=== PATIENT | male | born 1940 | race Caucasian/White ===

== ENCOUNTER → 2021-11-22 00:50 | Outpatient (CLI) | payer MEDICARE, BC, SELFPAY ==
--- NOTE | 2021-11-22 11:00 | DI.NM_ITS ---
APPROVED REPORT Exam: Pharmacologic Patient Location: Out-Patient Room/Bed: Stress Nurse: Vanesa Kam RN Ordering Provider:CLARISA MAS, Contact Number: [phone] BMI: 21.76 Baseline Rhythm: Sinus Rhythm Comment: RBBB, flipped V2 Indications: Stable angina Medical History Medical History: Hypertension, hyperlipidemia, prediabetes, CVD Cardiac Medications: Metoprolol, amlodipine, isosorbide, atorvastatin, aspirin Allergies: NKA Cardiac Risk Factors: Hypertension, hyperlipidemia, prediabetes, CVD Previous Cardiac Procedures: DELMER (08-26, ) Pretest Chest Pain Characteristics: None Exercise History: Sedentary Physical Disabilities: None Lung Sounds: Clear to auscultation Heart Sounds: Regular Stress Test Details Test: Exercise stress converted to pharmacologic stress due to failure to obtain a diagnostic stress test. Reason for pharmacologic stress test: changed from exercise stress test due to inability to reach t arget heart rate. Nuclear Acquisition: Rest Tc-99m/Stress Tc-99m 1 day Rest Isotope: Tc-99m Sestamibi. Dose: 10.4 Date: 11/22/2021 Injection Time: 0845 Stress Isotope: Tc-99m Sestamibi. Dose: 31.0 Date: 11/22/2021 Injection Time: 1040 HR Resting HR Supine: 74 bpm Max Heart Rate (APMHR): 138.258328 bpm Resting HR Standin bpm Target HR (85% APMHR): 117.943861 bpm Max HR Achieved: 124 bpm % of APMHR: 89.86 Recovery HR: 84 bpm HR response to stress: Normal HR response to stress Comment: Metoprolol held for 48 hrs BP Resting BP Supine: 140/64 mmHg Resting BP Standin/58 mmHg Max BP: 168/66 mmHg Recovery BP: 140/70 mmHg BP response to stress: Normal blood pressure response to stress. ECG Resting ECG: Sinus Rhythm, RBBB Ectopy: None Comment: Flipped T waves lead V2 Stress ECG: Sinus Tachycardia, RBBB ST Change: No significant ST segment changes noted Arrhythmia: Frequent PACs, occasional PVCs Recovery ECG: Sinus Rhythm, RBBB Recovery ST Change: No significant ST segment changes noted Recovery Arrhythmia: Frequent PACs, frequent PVCs, couplets, brief episode of junctional rhythm at mi nute 3:50 in recovery Comment: Ectopy decreased towards end of recovery period Medications Administered Aminophyline (50 mg at 6 min recovery) Clinical Reason for Termination: Fatigue, Chest pain/Anginal equivalent Stress Symptoms: General Fatigue, Chest pain Exercise duration: 5 min59 sec Highest Stage Reached: Stage 2: 2.5 mph at 12% grade. Angina Score: Exercise-Limiting Rate Pressure Product: [id number] Stress ECG Conclusion 1. Resting electrocardiogram showed a right bundle branch block 2. Patient underwent exercise testing using a combination of low-level stress and regadenoson 3. Peak heart rate was 89% of predicted for age 4. Electrocardiographic portion of the test did not demonstrate any evidence of myocardial ischemia 5. See MPI report Stress Test Summary STAGE Time (mins) Speed (mph) Grade (%) HR BP SYMPTOMS METS Supine 74 140/64 Standing 66 138/58 SpO2 96% 1 3 1.7 10 100 138/56 SpO2 96% 4.6 2 6 2.5 12 111 4/10 CP sharp, SpO2 96% 7 1 min post Lexiscan injection 110 148/56 6/10 CP, SpO2 98% 3 min post Lexiscan injection 93 168/66 8/10 CP, SpO2 98% 6 min post Lexiscan injection 113 164/66 9/10 CP, SpO2 98% 9 min post Lexiscan injection 94 160/66 7/10 CP, SpO2 98% 12 min post Lexiscan injection 88 156/72 5/10 CP, SpO2 98% 15 min post Lexiscan injection 83 144/70 4/10 CP, SpO2 98% 17 84 140/70 4/10 CP, SpO2 98% 19 80 2/10 CP, SpO2 98% Exercise stress converted to pharmacologic stress due to failure to obtain a diagnostic stress test. Patient walked on treadmill at 1.3 mph and 0% grade during Regandenoson administration. Pt reported i ncrease in midsternal sharp 9/10 that radiated to BUE during recovery. Aminophylline administered at minute 6 of recovery. Chest pain decreased to level 2/10 by minute 19 of recovery and patient stated he felt well enough to continue with remaining MPI study. MPI Conclusion There is is ischemia of the inferoapical and septal mota EF 67% Septum and anteroapical segments are hypokinetic Radiologist Interpretation Radiologist agrees with Framing Mill Operator Helper's Interpretation. Radiologist Interpretation by: Elmo Rose MD Interpretation Date/Time: 11/22/2021 17:14:23
[2021-11-22] MEDS: Regadenoson 0.4 MG/5 ML SYR IVP (11:35)
== END ==
PROVIDERS: Visit Provider Family Medicine
DX: I20.8 Other forms of angina pectoris (principal)
CPT/HCPCS: 78452; 93016; 93018; 93017; J0280; J2785

== ENCOUNTER 2022-01-24 08:06 | Outpatient (CLI) | payer MEDICARE, BC, SELFPAY ==
--- NOTE | 2022-01-24 08:00 | RT.EKG_ITS ---
APPROVED REPORT Exam: Resting ECG Reason for Exam: angina Patient Location: O HR:61 bpm ECG Measurements Heart Rate 61 AXIS PA 168 P 76 QRSd 131 QRS 82 QT 411 T 36 QTc 414 Conclusion Sinus rhythm...normal P axis, V-rate 50- 99 Right bundle branch block...QRSd>120, terminal axis(90,270)
== END 2022-01-24 08:07 | disposition home or self-care (01) ==
LOC: DI.CARD 08:07
PROVIDERS: PCP Family Medicine; Visit Provider Internal Medicine Cardiovascular Disease
DX: I20.9 Angina pectoris, unspecified (principal); R94.31 Abnormal electrocardiogram [ECG] [EKG]; I45.19 Other right bundle-branch block
CPT/HCPCS: 93010

== ENCOUNTER → 2022-01-24 12:25 | Outpatient (BNVA) | payer MEDICARE, BC, SELFPAY | PROVIDERS: PCP Family Medicine; Visit Provider Internal Medicine Cardiovascular Disease | DX: I25.9 Chronic ischemic heart disease, unspecified (principal); I45.10 Unspecified right bundle-branch block; I12.9 Hypertensive chronic kidney disease with stage 1 through stage 4 chronic kidney disease, or unspecified chronic kidney disease; I25.2 Old myocardial infarction; I25.10 Atherosclerotic heart disease of native coronary artery without angina pectoris; N18.9 Chronic kidney disease, unspecified; E78.5 Hyperlipidemia, unspecified | CPT/HCPCS: 93005; 99203 ==

== ENCOUNTER → 2022-05-26 10:05 | Outpatient (BNVA) | payer MEDICARE, BC, SELFPAY | PROVIDERS: PCP Family Medicine; Referring Provider Family Medicine; Visit Provider Internal Medicine Cardiovascular Disease | DX: I25.10 Atherosclerotic heart disease of native coronary artery without angina pectoris; I12.9 Hypertensive chronic kidney disease with stage 1 through stage 4 chronic kidney disease, or unspecified chronic kidney disease; N18.9 Chronic kidney disease, unspecified; E78.5 Hyperlipidemia, unspecified | CPT/HCPCS: 99213 ==

== ENCOUNTER 2022-11-02 10:26 | Outpatient (CLI) | payer MEDICARE, BC, SELFPAY ==
--- NOTE | 2022-11-02 10:30 | RT.EKG_ITS ---
APPROVED REPORT Exam: Resting ECG Reason for Exam: chest pain, CAD Patient Location: O HR:60 bpm ECG Measurements Heart Rate 60 AXIS NE 165 P 69 QRSd 137 QRS 66 QT 402 T 32 QTc 402 Conclusion Sinus rhythm...normal P axis, V-rate 50- 99 Atrial premature complexes...SV complexes w/ short R-R intvls Right bundle branch block...QRSd>120, terminal axis(90,270)
== END 2022-11-02 10:27 | disposition home or self-care (01) ==
LOC: DI.CARD 10:31
PROVIDERS: PCP Family Medicine; Referring Provider Family Medicine; Visit Provider Internal Medicine Cardiovascular Disease
DX: I25.10 Atherosclerotic heart disease of native coronary artery without angina pectoris (principal)
CPT/HCPCS: 93010

== ENCOUNTER 2022-11-02 11:37 | Outpatient (CLI) | payer MEDICARE, BC, SELFPAY ==
[2022-11-02 12:08] LABS: HCT 38.4 % (40.0-50.0); HGB 12.4 g/dL (13.5-17.5); MCH 29.5 pg (27.0-33.0); MCHC 32.3 % (32.0-36.0); MCV 91 fL (80-95); Platelet Count 182 10^3/uL (130-400); RBC 4.21 10^6/uL (4.36-5.78); RDW 13.5 % (11.8-14.1); RDW-SD 45.4 fL; WBC 6.99 10^3/uL (4.4-10.8)
[2022-11-02 12:33] LABS: PTT Activated 24.3 sec (21.5-31.9); Prothrombin Time 10.4 sec (9.3-11.0)
[2022-11-02 12:38] LABS: Anion Gap 6.1 mmol/L (3-11); BUN 29 mg/dL (7-18); CO2 30.9 mmol/L (21.0-32.0); CREATININE 1.9 mg/dL (0.70-1.30); Calcium 8.3 mg/dL (8.5-10.1); Chloride 107 mmol/L (98-107); Estimated GFR 34.57 (mL/min/1.73m2); Glucose 155 mg/dL (74-106); Potassium 4.9 mmol/L (3.5-5.1); Sodium 144 mmol/L (136-145)
== END 2022-11-02 11:38 | disposition home or self-care (01) ==
LOC: LBO 11:40
PROVIDERS: PCP Family Medicine; Visit Provider Internal Medicine Cardiovascular Disease
DX: I25.118 Atherosclerotic heart disease of native coronary artery with other forms of angina pectoris; N18.9 Chronic kidney disease, unspecified; I25.2 Old myocardial infarction; E78.5 Hyperlipidemia, unspecified; I10 Essential (primary) hypertension
CPT/HCPCS: 36415; 80048; 85027; 99214; 85610; 85730

== ENCOUNTER → 2022-12-08 10:43 | Outpatient (BNVA) | payer MEDICARE, BC, SELFPAY | PROVIDERS: PCP Family Medicine; Referring Provider Family Medicine; Visit Provider Internal Medicine Cardiovascular Disease | DX: I25.10 Atherosclerotic heart disease of native coronary artery without angina pectoris (principal); I12.9 Hypertensive chronic kidney disease with stage 1 through stage 4 chronic kidney disease, or unspecified chronic kidney disease; E78.5 Hyperlipidemia, unspecified; N18.9 Chronic kidney disease, unspecified; E11.22 Type 2 diabetes mellitus with diabetic chronic kidney disease | CPT/HCPCS: 99214 ==

== ENCOUNTER → 2023-01-26 10:31 | Outpatient (BNVA) | payer MEDICARE, BC, SELFPAY | PROVIDERS: PCP Family Medicine; Referring Provider Family Medicine; Visit Provider Internal Medicine Cardiovascular Disease | DX: Z95.5 Presence of coronary angioplasty implant and graft (principal); I12.9 Hypertensive chronic kidney disease with stage 1 through stage 4 chronic kidney disease, or unspecified chronic kidney disease; I25.10 Atherosclerotic heart disease of native coronary artery without angina pectoris; N18.9 Chronic kidney disease, unspecified; E78.5 Hyperlipidemia, unspecified | CPT/HCPCS: 99214 ==

== ENCOUNTER → 2023-06-01 10:32 | Outpatient (BNVA) | payer MEDICARE, BC, SELFPAY | PROVIDERS: PCP Family Medicine; Referring Provider Family Medicine; Visit Provider Internal Medicine Cardiovascular Disease | DX: I12.9 Hypertensive chronic kidney disease with stage 1 through stage 4 chronic kidney disease, or unspecified chronic kidney disease (principal) | CPT/HCPCS: 99214 ==

== ENCOUNTER → 2023-12-04 11:23 | Outpatient (BNVA) | payer MEDICARE, BC, SELFPAY | PROVIDERS: PCP Family Medicine; Visit Provider Internal Medicine Cardiovascular Disease | DX: I25.10 Atherosclerotic heart disease of native coronary artery without angina pectoris (principal) | CPT/HCPCS: 99213 ==

== ENCOUNTER → 2024-06-06 10:43 | Outpatient (BNVA) | payer MEDICARE, BC, SELFPAY | PROVIDERS: PCP Family Medicine; Visit Provider Internal Medicine Cardiovascular Disease | DX: I25.10 Atherosclerotic heart disease of native coronary artery without angina pectoris (principal); N18.9 Chronic kidney disease, unspecified | CPT/HCPCS: 99214 ==

== ENCOUNTER 2024-10-06 12:45 | Outpatient (CLI) | payer MEDICARE, BC, SELFPAY ==
[2024-10-06 12:42] LABS: Abs Immature Grans 0.03 10^3/uL (0.0-0.06); Absolute Basophil Count 0.03 10^3/uL (0.0-0.2); Absolute Eosinophil Count 0.09 10^3/uL (0.0-0.7); Absolute Lymphocyte Count 0.65 10^3/uL (1.2-3.4); Absolute Monocyte Count 0.77 10^3/uL (0.1-0.8); Absolute Neutrophil Count 7.34 10^3/uL (1.2-6.7); Basophils % 0.3 %; HCT 37.1 % (40.0-50.0); HGB 11.9 g/dL (13.5-17.5); Immature Grans % 0.3 %; Lymphocytes % 7.3 %; MCH 30.5 pg (27.0-33.0); MCHC 32.1 % (32.0-36.0); MCV 95 fL (80-95); MPV 10.4 fL (8.0-11.0); Monocytes % 8.6 %; Neutrophils % 82.5 %; Platelet Count 175 10^3/uL (130-400); RDW 14.1 % (11.8-14.1); RDW-SD 48.6 fL; WBC 8.91 10^3/uL (4.4-10.8)
[2024-10-06 13:21] LABS: ALT 29 U/L (16-63); AST 21 U/L (15-37); Albumin 3.4 g/dL (3.4-5.0); Alkaline Phosphatase 107 U/L (46-116); Anion Gap 7.7 mmol/L (3-11); BUN 28 mg/dL (7-18); Bilirubin, Total 0.5 mg/dL (0.2-1.0); CO2 27.3 mmol/L (21.0-32.0); CREATININE 2.4 mg/dL (0.70-1.30); Calcium 8.5 mg/dL (8.5-10.1); Chloride 106 mmol/L (98-107); FREE T4 0.99 ng/dL (0.76-1.46); Glucose 233 mg/dL (74-106); Potassium 5.3 mmol/L (3.5-5.1); Sodium 141 mmol/L (136-145); TSH 1.05 uIU/mL (0.36-3.74); Total Protein 6.6 g/dL (6.4-8.2)
== END 2024-10-06 12:46 | disposition home or self-care (01) ==
LOC: LBO 12:46
PROVIDERS: PCP Family Medicine; Visit Provider Internal Medicine Hematology
DX: E46 Unspecified protein-calorie malnutrition (principal); C44.222 Squamous cell carcinoma of skin of right ear and external auricular canal
CPT/HCPCS: 36415; 80053; 84439; 84443; 85025

== ENCOUNTER 2024-11-03 04:36 | Outpatient (CLI) | payer MEDICARE, BC, SELFPAY ==
[2024-11-03 11:47] LABS: Abs Immature Grans 0.02 10^3/uL (0.0-0.06); Absolute Basophil Count 0.02 10^3/uL (0.0-0.2); Absolute Eosinophil Count 0.17 10^3/uL (0.0-0.7); Absolute Lymphocyte Count 0.92 10^3/uL (1.2-3.4); Absolute Monocyte Count 0.54 10^3/uL (0.1-0.8); Absolute Neutrophil Count 4.66 10^3/uL (1.2-6.7); Basophils % 0.3 %; Eosinophils % 2.7 %; HCT 35.2 % (40.0-50.0); HGB 11.4 g/dL (13.5-17.5); Immature Grans % 0.3 %; Lymphocytes % 14.5 %; MCH 30.5 pg (27.0-33.0); MCHC 32.4 % (32.0-36.0); MCV 94 fL (80-95); MPV 10.5 fL (8.0-11.0); Monocytes % 8.5 %; Neutrophils % 73.7 %; Platelet Count 163 10^3/uL (130-400); RBC 3.74 10^6/uL (4.36-5.78); RDW 14.1 % (11.8-14.1); RDW-SD 47.3 fL; WBC 6.33 10^3/uL (4.4-10.8)
[2024-11-03 12:11] LABS: ALT 289 U/L (16-63); AST 184 U/L (15-37); Albumin 3.4 g/dL (3.4-5.0); Alkaline Phosphatase 243 U/L (46-116); Anion Gap 4.4 mmol/L (3-11); BUN 34 mg/dL (7-18); Bilirubin, Total 0.4 mg/dL (0.2-1.0); CO2 28.6 mmol/L (21.0-32.0); CREATININE 2.2 mg/dL (0.70-1.30); Calcium 8.8 mg/dL (8.5-10.1); Chloride 106 mmol/L (98-107); Estimated GFR 28.63 (mL/min/1.73m2); Glucose 194 mg/dL (74-106); Potassium 5.2 mmol/L (3.5-5.1); Sodium 139 mmol/L (136-145); TSH 0.96 uIU/mL (0.36-3.74); Total Protein 6.6 g/dL (6.4-8.2)
== END 2024-11-03 04:37 | disposition home or self-care (01) ==
LOC: LBO 04:36
PROVIDERS: PCP Family Medicine; Visit Provider Internal Medicine Hematology
DX: E46 Unspecified protein-calorie malnutrition (principal); C44.222 Squamous cell carcinoma of skin of right ear and external auricular canal
CPT/HCPCS: 36415; 80053; 84439; 84443; 85025

== ENCOUNTER 2024-11-10 10:18 | Outpatient (CLI) | payer MEDICARE, BC, SELFPAY ==
[2024-11-10 10:04] LABS: Abs Immature Grans 0.08 10^3/uL (0.0-0.06); Absolute Lymphocyte Count 0.62 10^3/uL (1.2-3.4); Basophils % 0.1 %; HCT 38.1 % (40.0-50.0); HGB 12.7 g/dL (13.5-17.5); Immature Grans % 0.5 %; MCH 30.6 pg (27.0-33.0); MCHC 33.3 % (32.0-36.0); MCV 92 fL (80-95); MPV 11.2 fL (8.0-11.0); Monocytes % 7.1 %; Neutrophils % 88.3 %; Platelet Count 245 10^3/uL (130-400); RBC 4.15 10^6/uL (4.36-5.78); RDW 13.6 % (11.8-14.1); RDW-SD 46.1 fL; WBC 15.52 10^3/uL (4.4-10.8)
[2024-11-10 10:09] LABS: Absolute Basophil Count 0.02 10^3/uL (0.0-0.2)
[2024-11-10 10:27] LABS: ALT 285 U/L (16-63); AST 85 U/L (15-37); Albumin 3.4 g/dL (3.4-5.0); Alkaline Phosphatase 209 U/L (46-116); Anion Gap 9.9 mmol/L (3-11); BUN 66 mg/dL (7-18); Bilirubin, Total 0.5 mg/dL (0.2-1.0); CO2 27.1 mmol/L (21.0-32.0); CREATININE 2.7 mg/dL (0.70-1.30); Calcium 8.5 mg/dL (8.5-10.1); Chloride 100 mmol/L (98-107); FREE T4 0.88 ng/dL (0.76-1.46); Glucose 338 mg/dL (74-106); Potassium 4.4 mmol/L (3.5-5.1); Sodium 137 mmol/L (136-145); TSH 0.32 uIU/mL (0.36-3.74); Total Protein 6.5 g/dL (6.4-8.2)
== END 2024-11-10 10:19 | disposition home or self-care (01) ==
LOC: LBO 10:19
PROVIDERS: PCP Family Medicine; Visit Provider Internal Medicine Hematology
DX: E46 Unspecified protein-calorie malnutrition (principal); C44.222 Squamous cell carcinoma of skin of right ear and external auricular canal
CPT/HCPCS: 36415; 80053; 84439; 84443; 85025

== ENCOUNTER 2024-11-24 04:12 | Outpatient (CLI) | payer MEDICARE, BC, SELFPAY ==
[2024-11-24 09:14] LABS: Abs Immature Grans 0.06 10^3/uL (0.0-0.06); Basophils % 0.1 %; HCT 36.9 % (40.0-50.0); HGB 12.1 g/dL (13.5-17.5); Immature Grans % 0.4 %; Lymphocytes % 2.9 %; MCH 30.5 pg (27.0-33.0); MCHC 32.8 % (32.0-36.0); MCV 93 fL (80-95); MPV 10.4 fL (8.0-11.0); Monocytes % 2.2 %; Neutrophils % 94.4 %; Platelet Count 172 10^3/uL (130-400); RBC 3.97 10^6/uL (4.36-5.78); RDW 13.3 % (11.8-14.1); RDW-SD 45.5 fL; WBC 15.75 10^3/uL (4.4-10.8)
[2024-11-24 09:15] LABS: Absolute Basophil Count 0.02 10^3/uL (0.0-0.2); Absolute Lymphocyte Count 0.46 10^3/uL (1.2-3.4); Absolute Monocyte Count 0.35 10^3/uL (0.1-0.8); Absolute Neutrophil Count 14.87 10^3/uL (1.2-6.7)
[2024-11-24 09:39] LABS: ALT 49 U/L (16-63); AST 11 U/L (15-37); Albumin 3.2 g/dL (3.4-5.0); Alkaline Phosphatase 112 U/L (46-116); Anion Gap 8.2 mmol/L (3-11); BUN 65 mg/dL (7-18); Bilirubin, Total 0.5 mg/dL (0.2-1.0); CO2 26.8 mmol/L (21.0-32.0); CREATININE 2.5 mg/dL (0.70-1.30); Calcium 8.4 mg/dL (8.5-10.1); Chloride 102 mmol/L (98-107); Estimated GFR 24.56 (mL/min/1.73m2); FREE T4 0.71 ng/dL (0.76-1.46); Glucose 233 mg/dL (74-106); Potassium 5.1 mmol/L (3.5-5.1); Sodium 137 mmol/L (136-145); TSH 0.76 uIU/mL (0.36-3.74); Total Protein 5.9 g/dL (6.4-8.2)
== END 2024-11-24 04:13 | disposition home or self-care (01) ==
PROVIDERS: PCP Family Medicine; Visit Provider Internal Medicine Hematology
DX: E46 Unspecified protein-calorie malnutrition (principal)
CPT/HCPCS: 36415; 80053; 84439; 84443; 85025

== ENCOUNTER 2024-12-01 09:10 | Outpatient (CLI) | payer MEDICARE, BC, SELFPAY ==
[2024-12-01 09:14] LABS: Abs Immature Grans 0.04 10^3/uL (0.0-0.06); Absolute Basophil Count 0.01 10^3/uL (0.0-0.2); Absolute Eosinophil Count 0.05 10^3/uL (0.0-0.7); Absolute Lymphocyte Count 0.61 10^3/uL (1.2-3.4); Absolute Monocyte Count 0.36 10^3/uL (0.1-0.8); Absolute Neutrophil Count 9.18 10^3/uL (1.2-6.7); Basophils % 0.1 %; Eosinophils % 0.5 %; HCT 36.8 % (40.0-50.0); HGB 11.9 g/dL (13.5-17.5); Immature Grans % 0.4 %; MCH 30.7 pg (27.0-33.0); MCHC 32.3 % (32.0-36.0); MCV 95 fL (80-95); MPV 10.1 fL (8.0-11.0); Monocytes % 3.5 %; Neutrophils % 89.5 %; Platelet Count 139 10^3/uL (130-400); RBC 3.88 10^6/uL (4.36-5.78); RDW 13.8 % (11.8-14.1); RDW-SD 47.9 fL; WBC 10.25 10^3/uL (4.4-10.8)
[2024-12-01 09:40] LABS: ALT 32 U/L (16-63); AST 12 U/L (15-37); Albumin 3.2 g/dL (3.4-5.0); Alkaline Phosphatase 95 U/L (46-116); Anion Gap 5.8 mmol/L (3-11); BUN 45 mg/dL (7-18); Bilirubin, Total 0.4 mg/dL (0.2-1.0); CO2 28.2 mmol/L (21.0-32.0); CREATININE 2.5 mg/dL (0.70-1.30); Calcium 8.6 mg/dL (8.5-10.1); Chloride 105 mmol/L (98-107); Estimated GFR 24.56 (mL/min/1.73m2); FREE T4 0.74 ng/dL (0.76-1.46); Glucose 211 mg/dL (74-106); Potassium 5.4 mmol/L (3.5-5.1); Sodium 139 mmol/L (136-145); TSH 1.36 uIU/mL (0.36-3.74)
== END 2024-12-01 09:11 | disposition home or self-care (01) ==
LOC: LBO 09:11
PROVIDERS: PCP Family Medicine; Visit Provider Internal Medicine Hematology
DX: E46 Unspecified protein-calorie malnutrition (principal); C44.222 Squamous cell carcinoma of skin of right ear and external auricular canal
CPT/HCPCS: 36415; 80053; 84439; 84443; 85025

== ENCOUNTER 2024-12-22 02:04 | Outpatient (CLI) | payer MEDICARE, BC, SELFPAY ==
[2024-12-22 10:38] LABS: Abs Immature Grans 0.04 10^3/uL (0.0-0.06); Absolute Basophil Count 0.03 10^3/uL (0.0-0.2); Absolute Eosinophil Count 0.07 10^3/uL (0.0-0.7); Absolute Lymphocyte Count 0.83 10^3/uL (1.2-3.4); Absolute Monocyte Count 0.62 10^3/uL (0.1-0.8); Absolute Neutrophil Count 5.53 10^3/uL (1.2-6.7); Basophils % 0.4 %; HCT 35.8 % (40.0-50.0); HGB 11.5 g/dL (13.5-17.5); Immature Grans % 0.6 %; Lymphocytes % 11.7 %; MCH 30.5 pg (27.0-33.0); MCHC 32.1 % (32.0-36.0); MCV 95 fL (80-95); MPV 9.7 fL (8.0-11.0); Monocytes % 8.7 %; Neutrophils % 77.6 %; Platelet Count 227 10^3/uL (130-400); RBC 3.77 10^6/uL (4.36-5.78); RDW 13.3 % (11.8-14.1); RDW-SD 46.6 fL; WBC 7.12 10^3/uL (4.4-10.8)
[2024-12-22 11:12] LABS: ALT 20 U/L (16-63); AST 11 U/L (15-37); Albumin 3.1 g/dL (3.4-5.0); Alkaline Phosphatase 78 U/L (46-116); Anion Gap 5.3 mmol/L (3-11); BUN 26 mg/dL (7-18); Bilirubin, Total 0.3 mg/dL (0.2-1.0); CO2 29.7 mmol/L (21.0-32.0); CREATININE 1.9 mg/dL (0.70-1.30); Calcium 8.3 mg/dL (8.5-10.1); Chloride 107 mmol/L (98-107); Estimated GFR 33.93 (mL/min/1.73m2); FREE T4 0.71 ng/dL (0.76-1.46); Glucose 160 mg/dL (74-106); Potassium 5.1 mmol/L (3.5-5.1); Sodium 142 mmol/L (136-145); TSH 1.69 uIU/mL (0.36-3.74)
== END 2024-12-22 02:05 | disposition home or self-care (01) ==
LOC: LBO 02:04
PROVIDERS: PCP Family Medicine; Visit Provider Nurse Practitioner
DX: Z92.26 Personal history of immune checkpoint inhibitor therapy (principal); C44.222 Squamous cell carcinoma of skin of right ear and external auricular canal
CPT/HCPCS: 36415; 80053; 84439; 84443; 85025

== ENCOUNTER 2025-01-12 02:00 | Outpatient (CLI) | payer MEDICARE, BC, SELFPAY ==
[2025-01-12 12:07] LABS: Abs Immature Grans 0.03 10^3/uL (0.0-0.06); HCT 35.1 % (40.0-50.0); HGB 11.2 g/dL (13.5-17.5); Immature Grans % 0.3 %; MCH 30.3 pg (27.0-33.0); MCHC 31.9 % (32.0-36.0); MCV 95 fL (80-95); MPV 10.4 fL (8.0-11.0); Platelet Count 205 10^3/uL (130-400); RBC 3.70 10^6/uL (4.36-5.78); RDW 13.3 % (11.8-14.1); RDW-SD 45.9 fL; WBC 8.96 10^3/uL (4.4-10.8)
[2025-01-12 12:31] LABS: ALT 128 U/L (16-63); AST 76 U/L (15-37); Albumin 3.1 g/dL (3.4-5.0); Alkaline Phosphatase 350 U/L (46-116); Anion Gap 8.9 mmol/L (3-11); BUN 29 mg/dL (7-18); Bilirubin, Total 0.3 mg/dL (0.2-1.0); CO2 27.1 mmol/L (21.0-32.0); Calcium 8.4 mg/dL (8.5-10.1); Chloride 104 mmol/L (98-107); Estimated GFR 36.21 (mL/min/1.73m2); Glucose 314 mg/dL (74-106); Potassium 4.5 mmol/L (3.5-5.1); Sodium 140 mmol/L (136-145); TSH 1.19 uIU/mL (0.36-3.74); Total Protein 6.3 g/dL (6.4-8.2)
== END 2025-01-12 02:01 | disposition home or self-care (01) ==
PROVIDERS: PCP Family Medicine; Visit Provider Internal Medicine Hematology
DX: E46 Unspecified protein-calorie malnutrition (principal); C44.222 Squamous cell carcinoma of skin of right ear and external auricular canal
CPT/HCPCS: 36415; 80053; 84439; 84443; 85025

== ENCOUNTER 2025-02-09 11:37 | Outpatient (CLI) | payer MEDICARE, BC, SELFPAY ==
[2025-02-09 11:13] LABS: Abs Immature Grans 0.03 10^3/uL (0.0-0.06); HCT 34.4 % (40.0-50.0); HGB 11.3 g/dL (13.5-17.5); Immature Grans % 0.4 %; MCH 30.9 pg (27.0-33.0); MCHC 32.8 % (32.0-36.0); MCV 94 fL (80-95); MPV 10.1 fL (8.0-11.0); Platelet Count 168 10^3/uL (130-400); RBC 3.66 10^6/uL (4.36-5.78); RDW 13.2 % (11.8-14.1); RDW-SD 45.0 fL; WBC 8.28 10^3/uL (4.4-10.8)
[2025-02-09 11:54] LABS: ALT 22 U/L (16-63); AST 14 U/L (15-37); Albumin 2.8 g/dL (3.4-5.0); Alkaline Phosphatase 97 U/L (46-116); Anion Gap 6.6 mmol/L (3-11); BUN 34 mg/dL (7-18); Bilirubin, Total 0.5 mg/dL (0.2-1.0); CO2 30.4 mmol/L (21.0-32.0); Calcium 8.6 mg/dL (8.5-10.1); Chloride 99 mmol/L (98-107); Estimated GFR 25.63 (mL/min/1.73m2); Glucose 372 mg/dL (74-106); Potassium 5.4 mmol/L (3.5-5.1); Sodium 136 mmol/L (136-145); TSH 1.32 uIU/mL (0.36-3.74); Total Protein 6.1 g/dL (6.4-8.2)
== END 2025-02-09 11:38 | disposition home or self-care (01) ==
LOC: LBO 11:41
PROVIDERS: PCP Family Medicine; Visit Provider Internal Medicine Hematology
DX: E46 Unspecified protein-calorie malnutrition (principal); C44.222 Squamous cell carcinoma of skin of right ear and external auricular canal
CPT/HCPCS: 36415; 80053; 84439; 84443; 85025

== ENCOUNTER 2025-03-09 01:43 | Outpatient (CLI) | payer MEDICARE, BC, SELFPAY ==
[2025-03-09 10:15] LABS: Abs Immature Grans 0.03 10^3/uL (0.0-0.06); HCT 34.4 % (40.0-50.0); HGB 11.1 g/dL (13.5-17.5); Immature Grans % 0.4 %; MCH 30.3 pg (27.0-33.0); MCHC 32.3 % (32.0-36.0); MCV 94 fL (80-95); MPV 10.1 fL (8.0-11.0); Platelet Count 224 10^3/uL (130-400); RBC 3.66 10^6/uL (4.36-5.78); RDW 13.9 % (11.8-14.1); RDW-SD 47.4 fL; WBC 7.82 10^3/uL (4.4-10.8)
[2025-03-09 10:40] LABS: ALT 15 U/L (16-63); AST 15 U/L (15-37); Albumin 3.1 g/dL (3.4-5.0); Alkaline Phosphatase 68 U/L (46-116); Anion Gap 5.1 mmol/L (3-11); BUN 30 mg/dL (7-18); Bilirubin, Total 0.4 mg/dL (0.2-1.0); CO2 30.9 mmol/L (21.0-32.0); Calcium 8.8 mg/dL (8.5-10.1); Chloride 104 mmol/L (98-107); Estimated GFR 25.63 (mL/min/1.73m2); Glucose 236 mg/dL (74-106); Potassium 5.3 mmol/L (3.5-5.1); Sodium 140 mmol/L (136-145); TSH 1.55 uIU/mL (0.36-3.74); Total Protein 6.1 g/dL (6.4-8.2)
== END 2025-03-09 01:44 | disposition home or self-care (01) ==
LOC: LBO 01:43
PROVIDERS: PCP Family Medicine; Visit Provider Nurse Practitioner
DX: Z92.26 Personal history of immune checkpoint inhibitor therapy (principal); C44.222 Squamous cell carcinoma of skin of right ear and external auricular canal
CPT/HCPCS: 36415; 80053; 84439; 84443; 85025

== ENCOUNTER 2025-04-06 03:35 | Outpatient (CLI) | payer MEDICARE, BC, SELFPAY ==
[2025-04-06 10:30] LABS: Abs Immature Grans 0.05 10^3/uL (0.0-0.06); HCT 36.8 % (40.0-50.0); HGB 11.9 g/dL (13.5-17.5); Immature Grans % 0.6 %; MCH 29.7 pg (27.0-33.0); MCHC 32.3 % (32.0-36.0); MCV 92 fL (80-95); MPV 9.5 fL (8.0-11.0); Platelet Count 229 10^3/uL (130-400); RBC 4.01 10^6/uL (4.36-5.78); RDW 13.3 % (11.8-14.1); RDW-SD 45.0 fL; WBC 8.41 10^3/uL (4.4-10.8)
[2025-04-06 11:08] LABS: ALT 16 U/L (16-63); AST 19 U/L (15-37); Albumin 3.3 g/dL (3.4-5.0); Alkaline Phosphatase 78 U/L (46-116); Anion Gap 7.0 mmol/L (3-11); BUN 33 mg/dL (7-18); Bilirubin, Total 0.2 mg/dL (0.2-1.0); CO2 31.0 mmol/L (21.0-32.0); Calcium 8.9 mg/dL (8.5-10.1); Chloride 103 mmol/L (98-107); Estimated GFR 26.98 (mL/min/1.73m2); Glucose 258 mg/dL (74-106); Potassium 5.7 mmol/L (3.5-5.1); Sodium 141 mmol/L (136-145); TSH 1.57 uIU/mL (0.36-3.74); Total Protein 6.3 g/dL (6.4-8.2)
== END 2025-04-06 03:36 | disposition home or self-care (01) ==
LOC: LBO 03:35
PROVIDERS: PCP Family Medicine; Visit Provider Nurse Practitioner
DX: Z92.26 Personal history of immune checkpoint inhibitor therapy (principal); C44.222 Squamous cell carcinoma of skin of right ear and external auricular canal
CPT/HCPCS: 36415; 80053; 84439; 84443; 85025